=== PATIENT | female | born 1960 | race Caucasian/White ===

== ENCOUNTER → 2016-09-10 | Outpatient (CLI) | payer OTHER ==
[2016-09-10 10:01] LABS: ALT/SGPT 37 U/L (12-78); BLOOD UREA NITROGEN 9 mg/dl (7-18); BUN/CREATININE RATIO 15.2 (10-20); CALCIUM 8.6 mg/dl (8.5-10.1); CARBON DIOXIDE 26 mmol/L (21-32); CHLORIDE 107 mmol/L (98-107); CHOLESTEROL 192 mg/dl (0-200); CREATININE 0.62 mg/dl (0.60-1.20); GLUCOSE 90 mg/dl (70-99); SODIUM 142 mmol/L (136-145)
[2016-09-10 10:11] LABS: ALKALINE PHOSPHATASE 61 U/L (45-117); AST/SGOT 17 U/L (15-37); CHOLESTEROL/HDL RATIO 2.8; HDL CHOLESTEROL 69 mg/dl; LDL CHOLESTEROL CALCULATED 113 mg/dl; TRIGLYCERIDES 49 mg/dl (0-150); VERY LOW DENSITY LIPOPROT CALC 10 mg/dl
[2016-09-12 21:39] LABS: COAG FACTOR 2 ACTIVITY*TC 331 111 % (70-150); COAG FACTOR 5 ACTIVITY** 344X 129 % (65-150)
== END | disposition home or self-care (01) ==
LOC: C.LAB 07:58
PROVIDERS: ATTEND Family Medicine
DX: Z13.228 Encounter for screening for other metabolic disorders (principal); Z83.49 Family history of other endocrine, nutritional and metabolic diseases; Z83.2 Family history of diseases of the blood and blood-forming organs and certain disorders involving the immune mechanism